=== PATIENT | male | born 1990 | race Caucasian/White ===

== ENCOUNTER 2022-07-25 08:31 | Outpatient (CLI) | payer OTHER ==
[2022-07-25 09:15] VITALS: BP 96/62
--- NOTE | 2022-07-25 09:15 | SLEEP CARE CONSULTATION ---
Information from patient questionnaire entered by Rylie Teixeira. I have reviewed and concur with the information entered by Rylie Teixeira. This document represents the service I personally performed and the decisions made by me, Janice Callejas ARNP. History of Present Illness Service Date and Time: 07/25/2022830 Reason for Visit: New patient Chief Complaint: reports: Unrefreshed sleep, Snoring, Observed pauses in breathing, Frequent awakenings at night Date of Onset: 6-7 YRS Usual bedtime: 10-11 PM Time it takes to fall asleep: 10-20 MIN Snores at night: Yes Observed to quit breathing while asleep: Yes Sleeps alone due to snoring: No Number of times waking at night: 3-6 Reasons for waking at night: reports: Snoring, Other ( wakes him up). denies: Choking, Gasping for air Toss, Turn, or Twitch while sleeping: Yes Recalls having dreams: No (rarely remembers them) Usually gets out of bed at: 7-8 AM Feels refreshed in the morning: Yes (1-2 days a week he does not feel rested) Morning headache: Yes (2 days; resolves quickly in the morning) Sleepy or fatigued during the day: Yes Ever fallen asleep while driving: Yes (drowsy driving at night only) Takes day naps: No Dreams during day naps: Yes Prior sleep studies: No Additional HPI information: I had the pleasure of seeing EVERETTE CHEN today regarding the possibility of him having a sleep disorder. His current complaints are frequent night awakenings, observed pauses in breathing, snoring and unrefreshed sleep. He states that he has snored all his life. He states since he has been living with she has been telling him that he stops breathing and will make choking sounds. She will wake him up to turn over to reduce snoring as well. - Parasomnia Symptoms Ever been unable to move upon waking from sleep: No Walks in sleep: No Talks in sleep: Yes Ever acted out dreams in sleep: No Ever felt weak in the knees when startled or emotional: No Bothered by creepy, crawly, restless sensations in legs: No Problems with memory or concentration: Yes Subjective Initial [place] Sleepiness Scale score: 7 (07/24/22) Past Medical History Past Medical History: reports: Other (no significant medical history) Social History The patient's occupation is a AM. Patient is and lives in [place]. Have you smoked in the past 12 months: No Years of smokin Quit date: 2009 Alcohol use: Yes Alcohol amount and frequency: 1-2 DRINKS 1XWEEK Caffeine use: Yes Caffeine amount and frequency: 1 COFFEE OR ONE ENERGY DRINK DAILY Family History Family history of sleep disordered breathing: Yes Family Hx Sleep Apnea: Mother: Snoring, Grandparent: Snoring Allergies and Home Medications Known drug allergies: No Drug allergies reviewed: Yes (NKDA) Home medication list reviewed: Yes (OTC ibuprofen as needed) Review of Systems Cardiovascular: denies: high blood pressure Respiratory: denies: shortness of breath Gastrointestinal: denies: heartburn Neurological: reports: headaches. denies: head trauma Psychiatric: denies: Attention Deficit Hyperactivity, anxiety, depression Ear/Nose/Throat: reports: sinus problems, wisdom teeth removed. denies: tonsillectomy Endocrine: reports: sluggishness. denies: thyroid disease Musculoskeletal: reports: back pain Immunologic: reports: allergies to food or environment (seasonal allergies sometimes, dependant on area living in) Physical Exam Vital signs obtained and entered by: RYLIE Beltrán MA Blood Pressure: 96/62 (LEFT ARM) Cuff size: regular Heart Rate: 69 O2 Saturation: 97 Height: 6 ft Weight: 173 lb Body Mass Index: 23.4 BMI Classification: Normal Neck circumference: 16.75 Mouth and throat: narrow oropharynx Soft palate: long Hard palate: normal Uvula: normal Uvula visualization: 0% Mallampati Class IV Tongue: enlarged in size with teeth darling on lateral edges Tonsils: small Neck: normal w/o lymphadenopathy or thyromegaly Heart: regular rate and rhythm Lungs: clear bilaterally Impression and Plan 1. Suspected Obstructive Sleep Apnea-Hypopnea Syndrome, as suggested by a history of loud and irregular snoring, observed cessation of breath while asleep, gasping or choking in sleep, morning headache, unrefreshed sleep, cognitive impairment, and excessive daytime sleepiness. Narrow oropharynx and obesity are common predisposing factors for obstructive sleep apnea-hypopnea syndrome. I recommend proceeding to polysomnography to confirm the diagnosis and to assess severity. If the patient has significant sleep disordered breathing, a manual CPAP titration study will also be performed to find the optimal treatment pressure. I informed the patient of what the sleep studies involve and after some discussion, obtained agreement to proceed. The pathophysiology of obstructive sleep apnea-hypopnea syndrome was discussed with the patient and health risks of cardiovascular and cerebrovascular disease if not treated. Risks of drowsy driving discussed in detail and patient advised to avoid long distance driving and to puller through at the first sign of drowsiness. Patient agreed to plan. * Schedule polysomnography * Avoid long distance driving or driving when feeling sleepy. * Avoid alcohol, sedative and muscle relaxant around bedtime. * Review instructions provided by trained office staff on how to prepare for the sleep study. * Return for follow-up after sleep study completed. Visit Type: In Office Time Spent with Patient (minutes): 30 Provider Statement: I spent 100% of the Face to Face Visit with the patient with greater than 50% spent counseling the patient and coordination of care.
== END 2022-07-25 08:32 | disposition home or self-care (01) ==
LOC: SC 08:31
PROVIDERS: ATTEND Nurse Practitioner Family
DX: R06.83 Snoring (principal); R06.81 Apnea, not elsewhere classified; R51.9 Headache, unspecified; G47.8 Other sleep disorders; R41.89 Other symptoms and signs involving cognitive functions and awareness; G47.10 Hypersomnia, unspecified
CPT/HCPCS: 99203; 99212

== ENCOUNTER 2022-09-13 20:58 | Outpatient (CLI) | payer OTHER | END 2022-09-13 20:59 | disposition home or self-care (01) | LOC: SC 20:58 | PROVIDERS: ATTEND Nurse Practitioner Family | DX: R06.83 Snoring (principal); G47.8 Other sleep disorders; R06.81 Apnea, not elsewhere classified; R51.9 Headache, unspecified; G47.10 Hypersomnia, unspecified; R53.83 Other fatigue | CPT/HCPCS: 95810 ==

== ENCOUNTER 2022-10-18 10:12 | Outpatient (CLI) | payer OTHER ==
--- NOTE | 2022-10-18 10:33 | SLEEP CARE CONSULTATION ---
Information from patient questionnaire entered by Yamile Teixeira. I have reviewed and concur with the information entered by Yamile Teixeira. This document represents the service I personally performed and the decisions made by , Janice Callejas ARNP. History of Present Illness Service Date and Time: 10/18/2022 1012 Initial [place] Sleepiness Scale score: 7 (07/24/22) Current [place] Sleepiness Scale score: 9 (10/18/22) Additional HPI information: EVERETTE CHEN returns for follow up and results of the recently performed polysomnography. The patient was informed of the following findings: No significant sleep disordered breathing with an average AHI of 3.4 and deana oxygen saturation of 88%. Supine AHI elevated at 6.7. I explained the pathophysiology behind obstructive sleep apnea. Patient does not have sleep apnea and was advised how weight gain could increase the risk of developing sleep apnea in the future. Patient does not have significant sleep disordered breathing but has elevated AHI in supine position so advised positional therapy. Methods to achieve positional management therapy were discussed; such as, positioning with pillows, wearing a T-shirt with tennis balls sewn into the back or commercially available products. Patient has light to moderate snoring. Snoring can be reduced by weight loss. Weight loss is best achieved with diet consult. Patient instructed to contact PCP for referral. Snoring can also be treated with an oral appliance from a dentist. Advised to check insurance coverage. In addition, an ENT evaluation can be do to see if other treatment is indicated. Patient counseled not drink a lcohol less than 4 hours before bedtime as it can increase snoring and apnea. Patient was cautioned about risks of drowsy driving until sleepiness symptoms resolve. Sleep Study - Results Type of Sleep Study: Polysomnography (COMPLETED 09/13/22) Prior sleep studies: No Polysomnography/Home Sleep Study results: IMPRESSION: The quality of the study is good. The patient had normal sleep efficiency. The sleep architecture was relatively normal considering the first-night effect. Respiratory monitoring showed no significant sleep disordered breathing (AHI = 3.4) or hypoxia (deana oxygen saturation of 88%). The few respiratory events occurred almost exclusively during supine REM sleep (supine AHI = 6.7; non-supine = 0.28). Snore was light to moderate in intensity. There was no significant periodic leg movement of sleep. Cardiac rhythm was normal sinus rhythm without significant arrhythmia. No abnormal behavior (parasomnia) observed during the night. Allergies and Home Medications Known drug allergies: No Drug allergies reviewed: Yes Home medication list reviewed: Yes (no changes) Review of Systems Review of systems same as previous: Yes (no changes) Physical Exam Vital signs obtained and entered by: YAMILE Beltrán MA Blood Pressure: 128/76 (LEFT ARM) Cuff size: regular Heart Rate: 70 O2 Saturation: 99 Height: 6 ft Weight: 172 lb 9.6 oz Body Mass Index: 23.3 BMI Classification: Normal Impression and Plan Snoring but no significant sleep disordered breathing. However, patient had an elevated supine AHI of 6.7 and should avoid sleeping supine. Methods for staying off back during sleep was discussed. Patient advised that often weight loss will reduce snoring as well as apnea risk. An oral appliance can also be used for snoring. This would require a dental consultation. Patient cautioned not to use other online appliances as can cause bite issues. A list of accredited dentists in [facility] and one local dentist who makes oral appliances is available in the office. Patient is advised to check if insurance will cover. An ENT consult can also be helpful to determine if any other treatment is an option. * Avoid supine sleep * Maintain a healthy weight * Avoid alcohol consumption near bedtime * The patient is cautioned about driving until sleepiness is completely resolved. * Return as needed for follow up. Counseling Topics: Sleeping position, Weight control Visit Type: In Office Time Spent with Patient (minutes): 10 Provider Statement: I spent 100% of the Face to Face Visit with the patient with greater than 50% spent counseling the patient and coordination of care.
[2022-10-18 10:34] VITALS: BP 128/76
== END 2022-10-18 10:13 | disposition home or self-care (01) ==
LOC: SC 10:12
PROVIDERS: ATTEND Nurse Practitioner Family
DX: R06.83 Snoring (principal)
CPT/HCPCS: 99212

== ENCOUNTER 2024-01-19 14:30 | Outpatient (CLI) | payer OTHER ==
--- NOTE | 2024-01-19 23:52 | Ultrasound Report ---
PROCEDURE: Testicle INDICATIONS: TESTICULAR PAIN TECHNIQUE: Real-time scanning was performed of the scrotum and testicles, with image documentation. Color and p ulse Doppler interrogation was performed of both testicles. COMPARISON: Testicular ultrasound 09/23/2023. FINDINGS: Right: Testicle is normal in size at 4.3 x 3 x 2.2 cm, and homogenous in echotexture. Epididymis is normal in overall size and morphology. Epididymis measures 1 cm. No hydrocele. No varicoceles. Over lying scrotal skin is normal in thickness. Left: Testicle is normal in size at 3.6 x 2.4 x 1.5 cm, and homogeneous in echotexture. Microlithias is. Epididymis is normal in overall size and morphology. Epididymis measures 0.8 cm. Epididymal cyst s x2 measuring 0.9 cm and 0.5 cm. No hydrocele. No varicoceles. Overlying scrotal skin is normal in thickness. Doppler: Color and pulse Doppler demonstrate normal and symmetric arterial flow in both testicles. IMPRESSION: 1. No testicular mass. Left microlithiasis. 2. Small left epididymal cysts are benign. 3. No epididymitis demonstrated. No torsion. 4. No varicocele. No hydrocele. Reviewed by: Ashutosh Khan MD on 01/19/2024 11:51 PM PDT Approved by: Ashutosh Khan MD on 01/19/2024 11:51 PM PDT Station ID: [id number]
== END 2024-01-19 14:31 | disposition home or self-care (01) ==
LOC: DI 14:30
PROVIDERS: ATTEND Preventive Medicine Aerospace Medicine
DX: N50.812 Left testicular pain (principal); N50.3 Cyst of epididymis